=== PATIENT | male | born 1980 | race African-American/Black ===

== ENCOUNTER 2019-05-23 10:10 | Emergency (ER) | payer MEDICAID, MEDICARE, OTHER ==
[~2019-05-23] VITALS: Ht 180.3 cm; Wt 82.0 kg
[~2019-05-23 10:10] MED LIST: CEPHALEXIN; OMEPRAZOLE
[2019-05-23] MEDS ORDERED: LIDOCAINE HCL/PF 1% 10 MG/ML 5ML VIAL IJ ONE (11:45)
[2019-05-23] MEDS ORDERED: CLINDAMYCIN 600 MG in DEXTROSE 5% WATER 50 ML IV ONE (12:30)
[2019-05-23 13:54] LABS: BASOPHILS % 0.5 % (0.0-2.0); EOSINOPHILS % 2.3 % (0.0-5.0); HEMATOCRIT. 38.6 % (42.0-52.0); HEMOGLOBIN. 12.7 g/dL (14.0-18.0); LYMPHOCYTES % 19.8 % (20.0-50.0); MEAN CORPUSCULAR HEMOGLOBIN 26.8 pg (28.0-32.0); MEAN CORPUSCULAR VOLUME 81.2 fL (80.0-94.0); MEAN PLATELET VOLUME 7.2 fl (7.4-10.4); MONOCYTES % 9.3 % (2.0-8.0); NEUTROPHILS % 68.1 % (40.0-76.0); PLATELET 364 x1000/uL (130-400); RED BLOOD CELL COUNT 4.75 mill/uL (4.7-6.1); RED CELL DISTRIBUTION WIDTH 15.7 % (11.6-14.6)
[2019-05-23 14:00] VITALS: BP 156/93
[2019-05-23 14:02] LABS: CHLORIDE 104 mEq/L (98-107)
== END 2019-05-23 15:25 | disposition left against medical advice (07) ==
LOC: ER 10:10 → EDBEDREQ 13:46 → ER 15:25 → CANBEDREQ 16:04
DX: L03.114 Cellulitis of left upper limb (principal); R07.89 Other chest pain
CPT/HCPCS: 10060; 36415; 71045; 80053; 83880; 84484; 85025; 93005; 99285; J3490; J7060

== ENCOUNTER 2019-06-18 11:28 | Inpatient (IN) | payer MEDICAID, MEDICARE ==
[~2019-06-18] VITALS: Ht 180.3 cm; Wt 93.9 kg
[2019-06-18] MEDS ORDERED: SODIUM CHLORIDE 0.9% 1,000 ML IV ONE ×3 (11:41→14:23)
[2019-06-18] MEDS ORDERED: HALOPERIDOL LACTATE 5MG/ML VIAL IM ONE (11:45)
[2019-06-18] MEDS ORDERED: DIPHENHYDRAMINE 50MG/ML VIAL IM ONE (11:45)
[2019-06-18] MEDS ORDERED: LORAZEPAM 2MG/ML CPJ IM ONE (11:45)
[2019-06-18 12:26] LABS: CLARITY URINE CLOUDY (CLEAR); COLOR URINE DARK YELLOW (YELLOW); KETONES URINE 3+ (NEGATIVE); LEUKOCYTE ESTERASE URINE NEGATIVE (NEGATIVE); NITRITE URINE NEGATIVE (NEGATIVE); OCCULT BLOOD URINE 2+ (NEGATIVE); PROTEIN URINE 1+ (NEGATIVE); SPECIFIC GRAVITY URINE 1.025 (1.005-1.030)
[2019-06-18 12:40] LABS: BASOPHILS % 0.5 % (0.0-2.0); EOSINOPHILS % 0.6 % (0.0-5.0); HEMATOCRIT. 38.5 % (42.0-52.0); LYMPHOCYTES % 21.1 % (20.0-50.0); MEAN CORPUSCULAR HEMOGLOBIN 27.6 pg (28.0-32.0); MEAN CORPUSCULAR VOLUME 81.4 fL (80.0-94.0); MEAN PLATELET VOLUME 8.5 fl (7.4-10.4); MONOCYTES % 9.3 % (2.0-8.0); NEUTROPHILS % 68.5 % (40.0-76.0); PLATELET 311 x1000/uL (130-400); RED BLOOD CELL COUNT 4.73 mill/uL (4.7-6.1); RED CELL DISTRIBUTION WIDTH 17.1 % (11.6-14.6)
[2019-06-18 12:44] LABS: *COCAINE SCREEN URINE NEGATIVE (NEGATIVE); METHADONE URINE SCREEN NEGATIVE (NEGATIVE); OPIATES URINE SCREEN NEGATIVE (NEGATIVE); PHENCYCLIDINE URINE SCREEN PRESUMTIVE POSITIVE (NEGATIVE)
[2019-06-18 12:45] LABS: *AMPHETAMINES SCREEN URINE PRESUMTIVE POSITIVE (NEGATIVE); *BARBITURATES SCREEN URINE NEGATIVE (NEGATIVE); *BENZODIAZEPINES SCREEN URINE PRESUMTIVE POSITIVE (NEGATIVE); CANNABINOID URINE SCREEN PRESUMTIVE POSITIVE (NEGATIVE)
[2019-06-18 13:09] LABS: CHLORIDE 108 mEq/L (98-107)
[2019-06-18 13:12] LABS: ETHANOL BLOOD < 10 mg/dL
[2019-06-18 14:09] LABS: CREATINE KINASE 2671 IU/L (39-308)
[2019-06-18] MEDS ORDERED: ASPIRIN 81MG EC TABLET PO ONE (16:30)
[2019-06-18] MEDS ORDERED: CEFTRIAXONE 1 G PREMIX 50 ML IV ONE (16:45)
[2019-06-18] MEDS: SODIUM CHLORIDE 0.45% 1,000 ML IV SCH (16:50)
[2019-06-18] MEDS ORDERED: ACETAMINOPHEN 325MG TABLET PO PRN (17:00)
[2019-06-18] MEDS ORDERED: ONDANSETRON HCL 4MG/2ML INJ IV PRN (17:00)
[2019-06-18] MEDS ORDERED: HYDRALAZINE 20MG/ML VIAL IV PRN (17:00)
[2019-06-18] MEDS ORDERED: DOCUSATE SODIUM 100MG CAPSULE PO PRN (17:00)
[2019-06-18] MEDS ORDERED: CLONIDINE 0.1MG TABLET PO PRN (17:00)
[2019-06-18] MEDS ORDERED: MORPHINE SULFATE 2 MG/ML CPJ (NOT FOR IM USE) IV PRN (17:00)
[2019-06-18] MEDS ORDERED: DIPHENHYDRAMINE 50MG/ML VIAL IV PRN (17:00)
[2019-06-18] MEDS ORDERED: GUAIFENESIN 200MG/10ML SUGAR FREE UDC PO PRN (17:00)
[2019-06-18] MEDS ORDERED: MAGNESIUM/ALUMINUM HYDROXIDE/SIMETHICONE 30ML UDC PO PRN (17:00)
[2019-06-18] MEDS ORDERED: HYDROCODONE/ACETAMINOPHEN 10/325MG TABLET PO PRN (17:00)
[2019-06-18] MEDS ORDERED: IPRATROPIUM/ALBUTEROL 0.5-3(2.5)MG/3ML NEB HHN PRN (17:00)
[2019-06-18] MEDS: ENOXAPARIN 40MG/0.4ML SYR SUBCUT SCH (17:57)
[2019-06-18] MEDS: THIAMINE HCL 100MG TABLET PO SCH (17:57)
[2019-06-18] MEDS: MULTIVITAMINS,THER W-MINERALS TABLET PO SCH (17:57)
[2019-06-18 23:00] VITALS: BP 108/73
[2019-06-18] MEDS: SODIUM CHLORIDE 0.9% INJ 3ML FLUSH IVF SCH (23:32)
[2019-06-19] VITALS: BP 132/62
[2019-06-19 01:10] LABS: CREATINE KINASE MB FRACTION 17.3 ng/mL (0.5-3.6)
[2019-06-19 04:00] VITALS: BP 129/61
[2019-06-19] MEDS: SODIUM CHLORIDE 0.45% 1,000 ML IV SCH ×3 (05:04→21:19)
[2019-06-19] MEDS: SODIUM CHLORIDE 0.9% INJ 3ML FLUSH IVF SCH ×3 (06:00→21:18)
[2019-06-19 06:31] LABS: CHLORIDE 111 mEq/L (98-107)
[2019-06-19 06:32] LABS: BASOPHILS % 0.7 % (0.0-2.0); EOSINOPHILS % 2.5 % (0.0-5.0); HEMATOCRIT. 36.6 % (42.0-52.0); HEMOGLOBIN. 12.3 g/dL (14.0-18.0); LYMPHOCYTES % 40.6 % (20.0-50.0); MEAN CORPUSCULAR HEMOGLOBIN 27.3 pg (28.0-32.0); MEAN CORPUSCULAR VOLUME 81.8 fL (80.0-94.0); MEAN PLATELET VOLUME 7.9 fl (7.4-10.4); MONOCYTES % 10.5 % (2.0-8.0); NEUTROPHILS % 45.7 % (40.0-76.0); PLATELET 284 x1000/uL (130-400); RED BLOOD CELL COUNT 4.48 mill/uL (4.7-6.1); RED CELL DISTRIBUTION WIDTH 16.2 % (11.6-14.6)
[2019-06-19 06:46] LABS: CREATINE KINASE MB FRACTION 14.7 ng/mL (0.5-3.6)
[2019-06-19 06:53] LABS: CREATINE KINASE 1377 IU/L (39-308)
[2019-06-19 08:00] VITALS: BP 137/83
[2019-06-19] MEDS: THIAMINE HCL 100MG TABLET PO SCH (08:30)
[2019-06-19] MEDS: MULTIVITAMINS,THER W-MINERALS TABLET PO SCH (08:30)
[2019-06-19] MEDS: FOLIC ACID 1MG TABLET PO SCH (08:30)
[2019-06-19 12:00] VITALS: BP 118/69
[2019-06-19 16:00] VITALS: BP 148/52
[2019-06-19] MEDS ORDERED: CEFTRIAXONE 1 G PREMIX 50 ML IV SCH (17:00)
[2019-06-19] MEDS: ENOXAPARIN 40MG/0.4ML SYR SUBCUT SCH (18:00)
[2019-06-19 20:00] VITALS: BP 144/65
[2019-06-19] MEDS: LORAZEPAM 2MG/ML CPJ IV PRN (21:18)
[2019-06-19] MEDS ORDERED: HALOPERIDOL LACTATE 5MG/ML VIAL IM PRN (22:15)
[2019-06-20] VITALS: BP 138/69
[2019-06-20 04:00] VITALS: BP 154/74
[2019-06-20] MEDS: SODIUM CHLORIDE 0.9% INJ 3ML FLUSH IVF SCH (05:29)
[2019-06-20 08:00] VITALS: BP 151/91
[2019-06-20] MEDS: MULTIVITAMINS,THER W-MINERALS TABLET PO SCH ×2 (09:00→09:06)
[2019-06-20] MEDS: FOLIC ACID 1MG TABLET PO SCH ×2 (09:00→09:06)
[2019-06-20] MEDS: THIAMINE HCL 100MG TABLET PO SCH ×2 (09:00→09:06)
[2019-06-20] MEDS: LORAZEPAM 2MG/ML CPJ IV PRN (09:06)
[2019-06-20] MEDS: SODIUM CHLORIDE 0.45% 1,000 ML IV SCH (09:12)
[2019-06-20] MEDS ORDERED: AMLODIPINE 5MG TABLET PO SCH (12:00)
== END 2019-06-20 13:00 | disposition left against medical advice (07) | DRG 351 ==
LOC: ER 11:42 → 5WST 16:44 → ENRESERV 21:33
PROVIDERS: ADMIT Internal Medicine; ATTEND Internal Medicine
DX: M62.82 Rhabdomyolysis (principal); G93.41 Metabolic encephalopathy; E87.8 Other disorders of electrolyte and fluid balance, not elsewhere classified; E44.1 Mild protein-calorie malnutrition; N39.0 Urinary tract infection, site not specified; D64.9 Anemia, unspecified; F29 Unspecified psychosis not due to a substance or known physiological condition; F15.10 Other stimulant abuse, uncomplicated; F12.10 Cannabis abuse, uncomplicated; F16.10 Hallucinogen abuse, uncomplicated; R79.89 Other specified abnormal findings of blood chemistry; R74.0 Nonspecific elevation of levels of transaminase and lactic acid dehydrogenase [LDH]; Z68.28 Body mass index [BMI] 28.0-28.9, adult
CPT/HCPCS: 36415; 80053; 80305; 80307; 80320; 80329; 81003; 82550; 82553; 82962; 84443; 84484; 85025; 93005; 93306; 93970; 99285; J0696; J1200; J1630; J1650; J2060; J7030; G0480

== ENCOUNTER 2023-10-25 10:29 | Emergency (ER) | payer MEDICAID ==
[~2023-10-25] VITALS: Ht 182.9 cm; Wt 91.0 kg
[2023-10-25 10:38] VITALS: BP 154/78; PULSE 95; RESP 14; TEMP 98.5; O2SAT 98
== END 2023-10-25 16:03 | disposition home or self-care (01) ==
LOC: ER 11:29
DX: M79.672 Pain in left foot (principal); M79.671 Pain in right foot
CPT/HCPCS: 73630; 99283